=== PATIENT | female | born 2000 | race Two or more races ===

== ENCOUNTER 2022-12-17 18:08 | Emergency (ER) | payer MEDICAID, OTHER ==
[~2022-12-17] VITALS: Ht 162.6 cm; Wt 60.0 kg
[2022-12-17 18:23] VITALS: BP 146/103
[2022-12-17] MEDS ORDERED: ONDANSETRON 4MG ODT PO NR (19:00)
[2022-12-17] MEDS ORDERED: ACETAMINOPHEN 325MG TABLET PO ONE (19:00)
[2022-12-17] MEDS ORDERED: ACET-2708 MT (21:16)
[2022-12-17] MEDS ORDERED: BACL-141 MT (21:16)
== END 2022-12-17 21:25 | disposition home or self-care (01) ==
LOC: EDSEX 18:29 → ER 18:29
DX: S13.4XXA Sprain of ligaments of cervical spine, initial encounter (principal); V49.49XA Driver injured in collision with other motor vehicles in traffic accident, initial encounter; Y93.89 Activity, other specified; Y92.89 Other specified places as the place of occurrence of the external cause; Y99.8 Other external cause status; M54.2 Cervicalgia; M54.6 Pain in thoracic spine; I10 Essential (primary) hypertension
CPT/HCPCS: 72125; 81025; 99284; Q0162